=== PATIENT | female | born 1990 | race Two or more races ===

== ENCOUNTER 2019-04-07 09:08 | Emergency (ER) | payer OTHER ==
--- NOTE | 2019-04-07 09:31 | Emergency Department Record ---
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 Pt is right handed. Pt had needle use to numb for wart removal for extremity. Injected lido into patient, did not draw blood or body fluid into needle. Stuck left index finger pad with needle as recapping. No injection injury. Washed with soap and water. Pt with Td and Hep immunizations up to date. No other injury. Source patient is known. MD Complaint: Injury to:: Left, Finger Onset/Timin -: Hour(s) Other Extremity Injury: Fingers: Left Handedness: Left Place: Work Severity scale (1-10): 1 Improves With: None Context: Injury Associated Symptoms: Denies other symptoms Treatments Prior to Arrival: Other (washed with soap and water) Treatment Prior to Arrival Comment:: Washed with soap and water - Related Data Home Medications Medication Instructions Recorded Confirmed Last Taken Ropinirole HCl [Requip] 0.25 mg PO QHS PRN 04/07/19 04/07/19 04/06/19 Sertraline HCl [Zoloft] 75 mg PO DAILY 04/07/19 04/07/19 04/07/19 Allergies Allergy/AdvReac Type Severity Reaction Status Date / Time tetanus and diphtheria AdvReac HYPERSENSIT Verified 04/07/19 09:24 toxoids IVITY Review of Systems Constitutional: Denies: Chills, Fever Musculoskeletal: Reports: As per HPI Skin: Reports: As per HPI Physical Exam - General General Appearance: Alert, Oriented x3, Cooperative, No acute distress - Eye Eye exam: Normal appearance - ENT ENT exam: Mucous membranes moist - Respiratory Respiratory exam: negative: Respiratory distress - Extremities Extremities exam: Full ROM. negative: Joint swelling, Tenderness Image of Finger Tip: 1 - Left index finger single puncture site without drainage or gross FB - Neurological Neurological exam: Alert, Normal gait, Oriented X3 - Psychiatric Psychiatric exam: Normal affect, Normal mood - Skin Skin exam: Normal color Type of lesion: Other (puncture to LIF pad) Course - Reevaluation(s) Reevaluation #1: 04/07/19 09:31 Seen and exam. Brief history. Labs ordered per protocol. Pt states source patient known. Follow with employee health. Disposition Disposition: Discharge Clinical Impression: Needle stick injury of finger of left hand, Needle stick injury with contaminated needle Disposition: Home, Self-Care Condition: (1) Good Instructions: Needle Stick Injuries (ED) Additional Instructions: Review lab results. Return to Employee health Forms: Patient Portal Access Time of Disposition: 09:34 Quality - Quality Measures Quality Measures: N/A - Blood Pressure Screening Does Patient Have Any of the Following: No Blood Pressure Classification: Normal BP Reading Systolic Measurement: 105 Diastolic Measurement: 74 Screening for High Blood Pressure: < Normal BP, F/U Not Required > [G8783]
[2019-04-07 10:20] LABS: AMPHETAMINE SCREEN URINE NOT DETECTED; BARBITURATE SCREEN URINE NOT DETECTED; BENZODIAZEPINE SCREEN URINE NOT DETECTED; COCAINE SCREEN URINE NOT DETECTED; METHADONE SCREEN URINE NOT DETECTED; METHAMPHETAMINE SCREEN NOT DETECTED; OPIATE SCREEN URINE NOT DETECTED; PHENCYCLIDINE SCREEN URINE NOT DETECTED; PROPOXYPHENE SCREEN URINE NOT DETECTED; THC SCREEN URINE NOT DETECTED; TRICYCLIC ANTIDEPRESSANT SCRN NOT DETECTED
[2019-04-07 10:21] LABS: OXYCODONE SCREEN URINE NOT DETECTED
[2019-04-07 20:21] LABS: HEP A AB IGM Nonreactive (Nonreactive); HEPATITIS B CORE ANTIBODY,IGM Nonreactive (Nonreactive); HEPATITIS B SURFACE ANTIBODY >1000.00 mIU/mL; HEPATITIS B SURFACE ANTIGEN Nonreactive (Nonreactive); HEPATITIS C VIRUS ANTIBODY Nonreactive (Nonreactive)
== END 2019-04-07 09:39 | disposition home or self-care (01) ==
LOC: ER 09:08
DX: S61.231A Puncture wound without foreign body of left index finger without damage to nail, initial encounter (principal); W46.1XXA Contact with contaminated hypodermic needle, initial encounter; Y93.F9 Activity, other caregiving; Y92.531 Health care provider office as the place of occurrence of the external cause; Y99.0 Civilian activity done for income or pay
CPT/HCPCS: 80305; 80320; 87390; 99283